=== PATIENT | female | born 1985 | race Caucasian/White ===

== ENCOUNTER → 2016-12-24 | Outpatient (CLI) | payer BC ==
[~2016-12-24] MED LIST: CONTRAST GIVEN MC PRN; IOHEXOL 300 MG/ML 50 ML VIAL. INT UTERIN ONE
--- NOTE | 2016-12-24 13:47 | RAD ---
Hysterosalpingogram, 12/24/2016: History: Infertility Following cleansing of the cervix with Betadine a balloon occlusion catheter was passed into the cervical os. The balloon was inflated in the endocervical canal with 1.5 cc of sterile saline. Contrast was injected under fluoroscopic observation and digital imaging performed. 3.5 minutes of fluoroscopy time was utilized. 13 static and dynamic fluoroscopic images were recorded. The uterine cavity demonstrates mildly irregular margins. It is somewhat T-shaped in configuration. Much of the right fallopian tube was opacified. Only a short segment of the left fallopian tube was opacified. No free spillage of contrast from the distal end of either fallopian tube was visualized. During the procedure the balloon catheter was twice expelled back into the vagina from the pressure of the uterine contrast injection. IMPRESSION: 1. Mildly irregular margins of the uterine cavity with the uterus demonstrating a somewhat T- shaped configuration. 2. Lack of distal spillage of contrast from both fallopian tubes suggesting bilateral tubal occlusions. Technical difficulties with expulsion of the balloon catheter from the endocervical canal during the procedure could have conceivably resulted in a suboptimal injection. The study could be repeated with positioning of the catheter balloon in the uterine cavity, in an attempt to optimize the pressure of injection, if clinically indicated.
== END | disposition home or self-care (01) ==
LOC: US 09:09
PROVIDERS: ATTEND Obstetrics & Gynecology
DX: Z31.69 Encounter for other general counseling and advice on procreation (principal); N97.8 Female infertility of other origin
CPT/HCPCS: 58340; 74740; Q9967